=== PATIENT | female | born 1945 | race Caucasian/White ===

== ENCOUNTER 2022-08-05 02:38 | Emergency (ER) | payer BC, MEDICARE ==
[~2022-08-05] VITALS: Ht 162.6 cm; Wt 80.0 kg
[2022-08-05 03:04] VITALS: BP 179/82
[2022-08-05] MEDS ORDERED: HYDROcodone/acetaminophen 10/325mg tab PO ONE (03:05)
[2022-08-05] MEDS ORDERED: HYDR-3965 PO (05:28)
[2022-08-05] MEDS ORDERED: HYDROcodone/acetaminophen 5mg/325mg tablet PO ONE (05:55)
== END 2022-08-05 06:49 | disposition home or self-care (01) ==
LOC: ER 02:38
DX: M25.559 Pain in unspecified hip (principal); I10 Essential (primary) hypertension; E78.00 Pure hypercholesterolemia, unspecified; Z88.0 Allergy status to penicillin
CPT/HCPCS: 72170; 73130; 99284